=== PATIENT | female | born 1975 | race Caucasian/White ===

== ENCOUNTER 2020-11-24 10:30 | Day surgery (SDC) | payer MEDICAID ==
[2020-11-23 16:10] LABS: COVID AG,FIA SOURCE NASOPHARYNGEAL
[~2020-11-24] VITALS: Ht 175.3 cm; Wt 159.1 kg
[~2020-11-24 10:30] MED LIST: SODIUM CHLORIDE 0.9% 1,000 ML ONE
[2020-11-24] MEDS ORDERED: PROPOFOL 1% 20 ML VIAL IVP ONE (10:31)
[2020-11-24] MEDS ORDERED: SODIUM CHLORIDE 0.9% 1,000 ML IV ONE (11:00)
[2020-11-24] MEDS ORDERED: OXYGEN THERAPY IH SCH (20:00)
== END 2020-11-24 15:10 | disposition home or self-care (01) ==
LOC: SURGERY 10:30
PROVIDERS: ATTEND Specialist
DX: K62.5 Hemorrhage of anus and rectum (principal); D12.5 Benign neoplasm of sigmoid colon; E66.01 Morbid (severe) obesity due to excess calories; Z68.43 Body mass index [BMI] 50.0-59.9, adult; G89.29 Other chronic pain; Z20.822 Contact with and (suspected) exposure to COVID-19; Z79.899 Other long term (current) drug therapy; Z80.0 Family history of malignant neoplasm of digestive organs; Z83.71 Family history of colonic polyps; Z80.3 Family history of malignant neoplasm of breast; Z80.41 Family history of malignant neoplasm of ovary; R97.8 Other abnormal tumor markers
CPT/HCPCS: 36415; 45385; 84702; 87426; 88305; 93005; C9803; J2704; J7030